=== PATIENT | female | born 1955 | race African-American/Black ===

== ENCOUNTER 2017-04-05 05:59 | Inpatient (IN) | payer BC ==
[2017-04-05] MEDS: LACTATED RINGER'S 1,000 ML IV* (05:30)
[2017-04-05] MEDS ORDERED: TRANEXAMIC ACID IV (07:30)
[2017-04-05] MEDS ORDERED: DEXTROSE 5% IV (07:30)
[2017-04-05] MEDS: CEFAZOLIN 2 GM/50 ML (PMX) 50 ML IVPB (08:05)
[2017-04-05] MEDS ORDERED: FENTAnyl 50 MCG/ML VIAL (08:16)
[2017-04-05] MEDS: TRANEXAMIC ACID 1,000 MG in DEXTROSE 5% 100 ML IV ×2 (08:30→10:15)
[2017-04-05] MEDS: HIP PAIN COCKTAIL (CEFUROXIME) INJ ×2 (08:30→08:40)
[2017-04-05] MEDS ORDERED: SUGAMMADEX SODIUM 200 MG/2 ML VIAL IV (08:32)
[2017-04-05] MEDS ORDERED: LIDOCAINE 2% (SDV) 5 ML INJ (08:32)
[2017-04-05] MEDS ORDERED: PROPOFOL 20 ML (08:32)
[2017-04-05] MEDS ORDERED: ROCURONIUM 50 MG INJ (08:32)
[2017-04-05] MEDS ORDERED: SUCCINYLCHOLINE CHLORIDE 100 MG/5 ML SYG IV (08:32)
[2017-04-05] MEDS ORDERED: CEFAZOLIN 1 GM INJ (08:32)
[2017-04-05] MEDS: POLYMYXIN B 500000 UNIT INJ (08:40)
[2017-04-05] MEDS ORDERED: HYDROCODONE/APAP (5/325) TAB PO (10:30)
[2017-04-05] MEDS ORDERED: oxyCODONE 5 MG TAB PO (10:30)
[2017-04-05] MEDS: SOD CHLORIDE 0.9% 1,000 ML IV ×2 (10:38→13:39)
[2017-04-05] MEDS ORDERED: DIPHENHYDRAMINE 50 MG INJ IV (11:00)
[2017-04-05] MEDS ORDERED: SENNA/DOCUSATE NA (8.6MG/50MG) TAB PO (11:00)
[2017-04-05] MEDS ORDERED: OXYCODONE/ACETAMINOPHEN (5/325) TAB PO (11:00)
[2017-04-05] MEDS ORDERED: FENTAnyl 50 MCG/ML VIAL IV (11:00)
[2017-04-05] MEDS ORDERED: MAGNESIUM HYDROXIDE 30ML CUP PO (11:00)
[2017-04-05] MEDS ORDERED: ALBUTEROL 0.083% (NEB) 2.5 MG/3 ML AMP HHN (11:00)
[2017-04-05] MEDS ORDERED: ZOLPIDEM 5 MG TAB PO (11:00)
[2017-04-05] MEDS ORDERED: HYDROmorphONE (0.2 MG/ML) 10ML SYG IV ×2 (11:00)
[2017-04-05] MEDS ORDERED: BISACODYL 10 MG SUPP PR (11:00)
[2017-04-05] MEDS ORDERED: METOCLOPRAMIDE 10 MG INJ IV (11:00)
[2017-04-05] MEDS ORDERED: NA PHOSPHATE/BIPHOS 133 ML ENEMA PR (11:00)
[2017-04-05] MEDS ORDERED: BACITRACIN 50000 UNITS INJ (11:07)
[2017-04-05] MEDS: CEFAZOLIN 1 GM/50 ML (PMX) 50 ML IVPB ×2 (11:21→18:02)
[2017-04-05] MEDS: KETOROLAC 15 MG INJ IV ×2 (11:23→18:00)
[2017-04-05] MEDS: ASPIRIN (EC) 325 MG TAB PO ×2 (11:24→20:16)
[2017-04-05] MEDS: DOCUSATE SODIUM 100 MG CAP PO (11:24)
[2017-04-05] MEDS: ONDANSETRON 4 MG INJ IV (11:25)
[2017-04-05] MEDS: FENTAnyl 50 MCG/ML VIAL IV (11:25)
[2017-04-05] MEDS: MEPERIDINE 25 MG INJ IV (11:25)
[2017-04-05] MEDS: traMADol 50 MG TAB PO ×3 (11:28→23:24)
[2017-04-05 12:46] LABS: ADD UMIC YES; UR ASCORBIC ACID NEGATIVE (NEGATIVE); UR BACTERIA FEW /HPF (NONE SEEN); UR BILIRUBIN (Dip) NEGATIVE (NEGATIVE); UR BLOOD (Dip) 1+ mg/dL (NEGATIVE); UR CLARITY CLEAR (CLEAR); UR COLOR YELLOW (YELLOW); UR GLUCOSE (Dip) NEGATIVE (NEGATIVE); UR KETONES (Dip) NEGATIVE (NEGATIVE); UR LEUKOCYTE ESTERASE (Dip) NEGATIVE Leu/ul (NEGATIVE); UR NITRITE (Dip) NEGATIVE (NEGATIVE); UR RBC 19 /HPF (0-5); UR SPECIFIC GRAVITY (Dip) 1.028 (1.003-1.030); UR TOTAL PROTEIN (Dip) 1+ mg/dl (NEGATIVE); UR UROBILINOGEN (Dip) NEGATIVE (NEGATIVE); UR WBC 2 /HPF (0-5)
[2017-04-05] MEDS ORDERED: ASPIRIN (EC) 325 MG TAB PO (21:00)
[2017-04-06] MEDS: KETOROLAC 15 MG INJ IV (01:42)
[2017-04-06] MEDS: CEFAZOLIN 1 GM/50 ML (PMX) 50 ML IVPB (01:43)
[2017-04-06] MEDS: SOD CHLORIDE 0.9% 1,000 ML IV ×2 (01:44→08:21)
[2017-04-06] MEDS: traMADol 50 MG TAB PO ×3 (05:13→17:29)
[2017-04-06 05:42] LABS: ADD MAN DIFF? NO
[2017-04-06 05:50] LABS: BASOPHILS % 0.2 % (0.0-2.0); EOSINOPHILS % 0.5 % (0.0-7.0); HEMATOCRIT 27.1 % (37.0-47.0); HEMOGLOBIN 8.9 g/dl (12.0-16.0); LYMPHOCYTES # 1.2 10^3/ul (0.8-2.9); LYMPHOCYTES % 28.9 % (15.0-51.0); MEAN CORPUSCULAR HGB CONC 32.8 g/dl (32.0-37.0); MEAN CORPUSCULAR VOLUME 97.5 fl (82.0-101.0); MEAN PLATELET VOLUME 8.9 fl (7.4-10.4); MONOCYTE # 0.5 10^3/ul (0.3-0.9); MONOCYTES % 12.5 % (0.0-11.0); NEUTROPHIL # 2.3 10^3/ul (1.6-7.5); NEUTROPHILS % 57.7 % (39.0-77.0); PLATELET COUNT 146 10^3/UL (140-415); RED BLOOD COUNT 2.78 10^6/ul (4.20-5.40)
[2017-04-06 06:29] LABS: ANION GAP 10 (8-16); BLOOD UREA NITROGEN 6 mg/dl (7-20); CALCIUM 8.3 mg/dl (8.4-10.2); CARBON DIOXIDE 26 mmol/L (21-31); CHLORIDE 108 mmol/L (97-110); CREATININE 0.66 mg/dl (0.44-1.00); GLUCOSE 109 mg/dl (70-220); POTASSIUM 4.6 mmol/L (3.5-5.1); SODIUM 139 mmol/L (135-144)
[2017-04-06] MEDS: BETHANECHOL 25 MG TAB PO (06:36)
[2017-04-06] MEDS: CELECOXIB 200 MG CAP PO (08:19)
[2017-04-06] MEDS: ASPIRIN (EC) 325 MG TAB PO (08:20)
[2017-04-06] MEDS: DOCUSATE SODIUM 100 MG CAP PO (08:20)
[2017-04-06] MEDS ORDERED: ONDANSETRON 4 MG INJ IV (11:00)
== END 2017-04-06 20:15 | disposition home health service (06) | DRG 470 ==
LOC: REC 05:59 → MS1 13:09
PROC: 0SR904A Replacement of Right Hip Joint with Ceramic on Polyethylene Synthetic Substitute, Uncemented, Open Approach (ICD-10-PCS; principal; 2017-04-05 07:29)
DX: M16.11 Unilateral primary osteoarthritis, right hip (principal)
CPT/HCPCS: 71045; 72170; 73510; 73530; 80048; 81001; 85025; 86850; 86900; 86901; 87081; 88304; 88311; 97116; 97163; 97530

== ENCOUNTER 2017-07-28 06:38 | Inpatient (IN) | payer BC ==
[2017-07-28] MEDS: LANSOPRAZOLE 30 MG CAP PO (07:42)
[2017-07-28] MEDS: oxyCODONE (CR) 10 MG TAB [oxyCONTIN] PO (07:42)
[2017-07-28] MEDS: DEXAMETHASONE 4 MG/ML 1 ML INJ IV (07:43)
[2017-07-28] MEDS: ONDANSETRON 4 MG INJ IV ×3 (07:43→20:57)
[2017-07-28] MEDS: ACETAMINOPHEN 1000MG/100ML IV 100 ML IVPB (07:43)
[2017-07-28] MEDS: LACTATED RINGER'S 1,000 ML IV* (09:00)
[2017-07-28] MEDS ORDERED: SUCCINYLCHOLINE CHLORIDE 100 MG/5 ML SYG IV (10:55)
[2017-07-28] MEDS ORDERED: BUPIVACAINE 0.75%/DEXT (SPINAL) 2 ML INJ (10:55)
[2017-07-28] MEDS ORDERED: ROCURONIUM 50 MG INJ (10:55)
[2017-07-28] MEDS ORDERED: CEFAZOLIN 1 GM INJ (10:55)
[2017-07-28] MEDS ORDERED: LIDOCAINE 2% (SDV) 5 ML INJ (10:55)
[2017-07-28] MEDS ORDERED: PROPOFOL 20 ML (10:55)
[2017-07-28] MEDS ORDERED: GLYCOPYRROLATE 0.4 MG INJ ×2 (10:55→12:49)
[2017-07-28] MEDS ORDERED: morphine SULFATE/PF (10 MG/10 ML) INJ (10:55)
[2017-07-28] MEDS ORDERED: NEOSTIGMINE 3 MG/3 ML SYRINGE (10:55)
[2017-07-28] MEDS: TRANEXAMIC ACID 1,000 MG in NS 100 ML PRE-OP X1 IVPB ×2 (11:50→11:51)
[2017-07-28] MEDS ORDERED: LABETALOL HCL 20MG INJ (11:54)
[2017-07-28] MEDS ORDERED: ATROPINE 1 MG/10 ML SYRINGE (12:00)
[2017-07-28] MEDS: HIP PAIN COCKTAIL (CEFUROXIME) INJ (12:35)
[2017-07-28] MEDS: TRANEXAMIC ACID 1,000 MG in NS 100 ML INTRA-OP X1 IVPB (12:37)
[2017-07-28] MEDS ORDERED: ONDANSETRON 4 MG INJ (12:39)
[2017-07-28] MEDS ORDERED: METOCLOPRAMIDE 10 MG INJ (12:40)
[2017-07-28] MEDS: BACITRACIN 50000 UNITS INJ (12:43)
[2017-07-28] MEDS: POLYMYXIN/BACITRACIN 1L IRRIG (12:43)
[2017-07-28] MEDS: POLYMYXIN B 500000 UNIT INJ (12:44)
[2017-07-28] MEDS: SOD CHLORIDE 0.9% 1,000 ML IV (13:22)
[2017-07-28] MEDS ORDERED: NACL 0.9% 3 ML SYG IV (13:30)
[2017-07-28] MEDS ORDERED: SENNA/DOCUSATE NA (8.6MG/50MG) TAB PO (13:30)
[2017-07-28] MEDS ORDERED: DIPHENHYDRAMINE 50 MG INJ IV ×2 (13:30→14:00)
[2017-07-28] MEDS ORDERED: NALOXONE (0.4 MG/ML) INJ IV ×2 (13:30→14:00)
[2017-07-28] MEDS ORDERED: ZOLPIDEM 5 MG TAB PO (13:30)
[2017-07-28] MEDS ORDERED: MAGNESIUM HYDROXIDE 30ML CUP PO (13:30)
[2017-07-28] MEDS ORDERED: TRIMETHOBENZAMIDE 100 MG/ML VIAL IM (13:30)
[2017-07-28] MEDS ORDERED: BISACODYL 10 MG SUPP PR (13:30)
[2017-07-28] MEDS ORDERED: NA PHOSPHATE/BIPHOS 133 ML ENEMA PR (13:30)
[2017-07-28] MEDS: CEFAZOLIN 2 GM/50 ML (PMX) 50 ML IVPB (13:58)
[2017-07-28] MEDS: DOCUSATE SODIUM 100 MG CAP PO (13:59)
[2017-07-28] MEDS: ASPIRIN (EC) 325 MG TAB PO ×2 (13:59→20:57)
[2017-07-28] MEDS: CEFAZOLIN 1 GM/50 ML (PMX) 50 ML IVPB ×2 (14:00→22:53)
[2017-07-28] MEDS ORDERED: HYDROmorphONE 0.5 MG/0.5 ML SYG IV ×2 (14:00)
[2017-07-28] MEDS ORDERED: ONDANSETRON 4 MG INJ IV (14:00)
[2017-07-28] MEDS: GABAPENTIN 100 MG CAP PO (20:57)
[2017-07-29] MEDS: ONDANSETRON 4 MG INJ IV ×2 (02:00→08:00)
[2017-07-29 05:32] LABS: ADD MAN DIFF? NO
[2017-07-29 05:40] LABS: BASOPHILS % 0.1 % (0.0-2.0); HEMATOCRIT 31.1 % (37.0-47.0); HEMOGLOBIN 10.3 g/dl (12.0-16.0); LYMPHOCYTES # 1.2 10^3/ul (0.8-2.9); LYMPHOCYTES % 18.3 % (15.0-51.0); MEAN CORPUSCULAR HEMOGLOBIN 30.7 pg (29.0-33.0); MEAN CORPUSCULAR HGB CONC 33.1 g/dl (32.0-37.0); MEAN CORPUSCULAR VOLUME 92.8 fl (82.0-101.0); MEAN PLATELET VOLUME 9.2 fl (7.4-10.4); MONOCYTE # 0.9 10^3/ul (0.3-0.9); MONOCYTES % 13.1 % (0.0-11.0); NEUTROPHIL # 4.6 10^3/ul (1.6-7.5); NEUTROPHILS % 68.2 % (39.0-77.0); PLATELET COUNT 174 10^3/UL (140-415); RED BLOOD COUNT 3.35 10^6/ul (4.20-5.40); RED CELL DISTRIBUTION WIDTH 14.7 % (11.5-14.5)
[2017-07-29 05:40] LABS: WHITE BLOOD COUNT 6.7 10^3/ul (4.8-10.8)
[2017-07-29 06:01] LABS: ALANINE AMINOTRANSFERASE 26 IU/L (13-69); ALBUMIN 3.1 g/dl (3.3-4.9); ALBUMIN/GLOBULIN RATIO 1.14; ALKALINE PHOSPHATASE 54 IU/L (42-121); ANION GAP 10 (8-16); ASPARTATE AMINO TRANSFERASE 31 IU/L (15-46); BILIRUBIN,INDIRECT 0.4 mg/dl (0-1.1); BILIRUBIN,TOTAL 0.4 mg/dl (0.2-1.3); BLOOD UREA NITROGEN 12 mg/dl (7-20); CALCIUM 9.3 mg/dl (8.4-10.2); CARBON DIOXIDE 29 mmol/L (21-31); CHLORIDE 110 mmol/L (97-110); CREATININE 0.94 mg/dl (0.44-1.00); GLUCOSE 112 mg/dl (70-220); POTASSIUM 4.5 mmol/L (3.5-5.1); SODIUM 144 mmol/L (135-144); TOTAL PROTEIN 5.8 g/dl (6.1-8.1)
[2017-07-29] MEDS: CEFAZOLIN 1 GM/50 ML (PMX) 50 ML IVPB (06:10)
[2017-07-29] MEDS: PANTOPRAZOLE (EC) 40 MG TAB PO (06:10)
[2017-07-29] MEDS: oxyCODONE 5 MG TAB PO ×4 (06:27→18:26)
[2017-07-29] MEDS: BETHANECHOL 25 MG TAB PO (06:27)
[2017-07-29 06:32] LABS: FERRITIN 26.8 ng/ml (11.1-264.0)
[2017-07-29 06:42] LABS: IRON 52 ug/dl (35-150)
[2017-07-29 06:51] LABS: % IRON SATURATION 24 % SAT (22-52); TOTAL IRON BINDING CAPACITY 215 ug/dl (241-421)
[2017-07-29] MEDS: DOCUSATE SODIUM 100 MG CAP PO (08:46)
[2017-07-29] MEDS: CELECOXIB 200 MG CAP PO (08:46)
[2017-07-29] MEDS: GABAPENTIN 100 MG CAP PO (08:47)
[2017-07-29] MEDS: ASPIRIN (EC) 325 MG TAB PO (08:47)
[2017-07-29] MEDS ORDERED: FERROUS FUMARATE (SR) TAB PO (09:00)
[2017-07-29 09:32] LABS: ADD UMIC NO; UR ASCORBIC ACID NEGATIVE (NEGATIVE); UR BILIRUBIN (Dip) NEGATIVE (NEGATIVE); UR BLOOD (Dip) NEGATIVE (NEGATIVE); UR CLARITY CLEAR (CLEAR); UR COLOR COLORLESS (YELLOW); UR GLUCOSE (Dip) NEGATIVE (NEGATIVE); UR KETONES (Dip) NEGATIVE (NEGATIVE); UR LEUKOCYTE ESTERASE (Dip) NEGATIVE Leu/ul (NEGATIVE); UR NITRITE (Dip) NEGATIVE (NEGATIVE); UR SPECIFIC GRAVITY (Dip) 1.004 (1.003-1.030); UR TOTAL PROTEIN (Dip) NEGATIVE (NEGATIVE); UR UROBILINOGEN (Dip) NEGATIVE (NEGATIVE)
== END 2017-07-29 19:00 | disposition home health service (06) | DRG 470 ==
LOC: REC 06:38 → MS1 14:32
PROC: 0SRB04Z Replacement of Left Hip Joint with Ceramic on Polyethylene Synthetic Substitute, Open Approach (ICD-10-PCS; principal; 2017-07-28 10:30)
DX: M16.12 Unilateral primary osteoarthritis, left hip (principal)
CPT/HCPCS: 72170; 73500; 73530; 80053; 81003; 82728; 83540; 85025; 86850; 86900; 86901; 87081; 87086; 88304; 88311; 97116; 97161; 97165; 97530